=== PATIENT | male | born 1955 | race Two or more races ===

== ENCOUNTER 2017-11-30 10:23 | Emergency (ER) | payer SELFPAY ==
[~2017-11-30] VITALS: Ht 165.1 cm; Wt 77.1 kg
[2017-11-30 10:30] VITALS: BP 182/105
== END 2017-11-30 10:47 | disposition home or self-care (01) ==
LOC: ER 10:31
DX: M25.551 Pain in right hip (principal); M25.552 Pain in left hip; G89.29 Other chronic pain
CPT/HCPCS: 99283; A4606; Z7610